=== PATIENT | female | born 1985 | race Two or more races ===

== ENCOUNTER 2018-03-03 10:18 | Emergency (ER) | payer OTHER ==
[2018-03-03 10:32] VITALS: BP 154/70; PULSE 72; TEMP 98.7; BMI 26.4
[2018-03-03] MEDS ORDERED: AMOXICILLIN 500 MG CAPSULE (FP) PO ONE (10:57)
[2018-03-03] MEDS ORDERED: IBUPROFEN 400 MG TABLET (FP) PO ONE ×2 (10:58→11:04)
--- NOTE | 2018-03-03 11:03 | PDOC ---
History of Present Illness - General Chief Complaint: Abscess Boil Stated Complaint: ABSCESS BOIL Time Seen by Provider: 03/03/18 10:29 History Source: Patient Exam Limitations: No Limitations - History of Present Illness Initial Comments: 03/03/18 10:58 Patient came for evaluation of left cheek swelling/facial swelling that started yesterday. States is progressively worsened. Eyes fever, denies any drainage from area, has no URI symptoms or cellulitis. States having multiple areas of dental injury and decay. Has no dentist. 03/03/18 17:00 03/03/18 17:02 Timing/Duration: reports: getting worse Severity: Yes: mild Location: reports: face Respiratory Risk Factors: reports: no cause identified Associated Symptoms: reports: denies symptoms Past History - Travel Traveled outside of the country in the last 30 days: No Close contact w/someone who was outside of country & ill: No - Past Medical History Allergies/Adverse Reactions: Allergies Allergy/AdvReac Type Severity Reaction Status Date / Time No Known Allergies Allergy Verified 03/03/18 10:29 Home Medications: Ambulatory Orders Naproxen [Naprosyn] 500 mg PO BID PRN #20 tablet 10/05/15 Nitrofurantoin Monohyd/M-Cryst [Macrobid -] 100 mg PO BID #14 capsule 10/05/15 Ondansetron [Zofran *Odt*] 8 mg SL TID PRN #14 od.tablet 10/05/15 Oxycodone HCl/Acetaminophen [Percocet 5-325 mg Tablet] 1 - 2 combo PO Q4H PRN # 20 tablet MDD 12 10/05/15 Tamsulosin HCl [Flomax] 0.4 mg PO DAILY #7 capsule 10/05/15 Amoxicillin - [Amoxicillin 500mg Capsule -] 500 mg PO TID #21 capsule 03/03/18 Asthma: Yes Cancer: No Cardiac Disorders: No COPD: No Diabetes: No HTN: No Seizures: No Thyroid Disease: No - Surgical History Cholecystectomy: Yes - Immunization History Immunization Up to Date: Yes - Suicide/Smoking/Psychosocial Hx Smoking History: Never smoked Number of Cigarettes Smoked Daily: 8 Information on smoking cessation initiated: No 'Breaking Loose' booklet given: 10/05/15 Hx Alcohol Use: No Drug/Substance Use Hx: No Substance Use Type: None Hx Substance Use Treatment: No Review of Systems - Review of Systems Able to Perform ROS?: Yes Is the patient limited Slovenian proficient: Yes Constitutional: Yes: Symptoms Reported, See HPI HEENTM: Yes: See HPI, Nose Congestion, Throat Swelling, Dental Problems, Mouth Swelling. No: Symptoms Reported Respiratory: Yes: See HPI. No: Symptoms reported Integumentary: Yes: See HPI. No: Symptoms Reported Neurological: Yes: Symptoms reported All Other Systems: Reviewed and Negative *Physical Exam - Vital Signs Last Vital Signs Temp Pulse Resp BP Pulse Ox 98.7 F 72 16 154/70 100 03/03/18 10:29 03/03/18 10:29 03/03/18 10:29 03/03/18 10:29 03/03/18 10:29 - Physical Exam General Appearance: Yes: Nourished, Appropriately Dressed, Apparent Distress, Mild Distress HEENT: positive: CORA, TMs Normal, Pharynx Normal, Rhinorrhea, Other (multiple areas of dental injury NDKA area of swelling to left upper gingival surface and deep cheek. Has no pointing or fluctuant mass noted. Has no palate abscess or fluctuance.). negative: Nasal Congestion Neck: positive: Tender, Supple Respiratory/Chest: positive: Lungs Clear. 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, Fully Oriented, Alert, Normal Mood/ Affect, Normal Response, Motor Strength 5/5 *DC/Admit/Observation/Transfer Diagnosis at time of Disposition: Abscess, dental - Discharge Dispostion Disposition: HOME Condition at time of disposition: Stable Decision to Admit order: No - Prescriptions Prescriptions: Amoxicillin - [Amoxicillin 500mg Capsule -] 500 mg PO TID #21 capsule - Referrals Referrals: Maurice Wilder [Primary Care Provider] - - Patient Instructions Printed Discharge Instructions: DI for Tooth Abscess Additional Instructions: Rest, drink lots of fluids: Teas, water, soups Saltwater gargles/ keep mouth clean and rinse after each meal May use wet teabag for pain relief to area Avoid hard chewing foods, stick to ice cream, Jell-O, yogurt etc. Tylenol or Motrin for fever and pain Complete all medication as prescribed Seek dental appointment as soon as possible for evaluation of dental injury/pain Followup with private physician in one to 2 days as needed Return to emergency department for worsened symptoms, fevers, swelling to face or worsened pain - Post Discharge Activity Forms/Work/School Notes: Back to Work
[2018-03-03] MEDS ORDERED: AMOXICILLIN 250 MG CAPSULE ONE (11:04)
== END 2018-03-03 11:19 | disposition home or self-care (01) ==
LOC: JERFT 10:18
DX: K04.7 Periapical abscess without sinus (principal)
CPT/HCPCS: 99281-25

== ENCOUNTER 2019-05-08 18:44 | Emergency (ER) | payer OTHER ==
--- NOTE | 2019-05-08 19:14 | PDOC ---
Rapid Medical Evaluation Time Seen by Provider: 05/08/19 19:12 Medical Evaluation: Allergies Allergy/AdvReac Type Severity Reaction Status Date / Time No Known Allergies Allergy Verified 03/03/18 10:29 05/08/19 19:12 PT presents for evaluation of chest pain and sweating in the hands approximately 45 minutes ago. She states she has panic attacks in the past. Exam: lungs CTAB, RRR, S1 S2 (-) m/r/g Orders: EKG, Trop Pt to proceed to the ER for further evaluation Discharge Disposition - Diagnosis Chest pain - Referrals - Patient Instructions - Post Discharge Activity
[2019-05-08 19:17] VITALS: TEMP 98.6; BMI 31.2
[2019-05-08 21:48] LABS: BASO % 0.4 % (0-2.0); EOS % 0.5 % (0-4.5); HEMATOCRIT 42.5 % (32.4-45.2); HEMOGLOBIN 14.4 GM/dL (10.7-15.3); LYMPH % 19.9 % (8-40); MCH 30.6 pg (25.7-33.7); MEAN PLT VOLUME 8.5 fl (7.5-11.1); MONO % 6.4 % (3.8-10.2); NEUT % 72.8 % (42.8-82.8); PLATELET COUNT 296 K/MM3 (134-434); RBC 4.72 M/mm3 (3.60-5.2)
[2019-05-08 22:17] LABS: ALBUMIN 4.2 g/dl (3.4-5.0); ALK PHOS 65 U/L (45-117); ANION GAP 8 MMOL/L (8-16); BILIRUBIN,TOTAL 1.2 mg/dL (0.2-1); BLOOD UREA NITROGEN 11.4 mg/dL (7-18); CALCIUM 9.3 mg/dL (8.5-10.1); CHLORIDE 106 mmol/L (98-107); CO2 26 mmol/L (21-32); CREATININE 0.8 mg/dL (0.55-1.3); GLUCOSE,RANDOM 97 mg/dL (74-106); POTASSIUM 4.1 mmol/L (3.5-5.1); SGOT/AST 14 U/L (15-37); SGPT/ALT 26 U/L (13-61); SODIUM 140 mmol/L (136-145); TOT PROT 7.4 g/dl (6.4-8.2)
--- NOTE | 2019-05-08 22:36 | PDOC ---
Attending Attestation - Resident Resident Name: Rafael Vasquez - ED Attending Attestation I have performed the following: I have examined & evaluated the patient, The case was reviewed & discussed with the resident, I agree w/resident's findings & plan, Exceptions are as noted - HPI HPI: 05/08/19 22:38 Ms. Robb Fonseca is a 34-year-old female who presents emergency department with a complaint of chest pain. Patient states she was in her usual state of health, began to have a panic attack (which she has had in the past). Typically she is able to breathe through these and control her symptoms. However today she could not control her panic symptoms and began to have left- sided chest pain. Patient states she had to call her sister for assistance because she thought she was going to pass out. Chest pain is associated with shortness of breath. She does have chest pain with deep breath. No chest pain with palpation. Chest pain is current. No fevers, chills, cough. - Physicial Exam PE: 05/08/19 22:39 GENERAL: The patient is in no acute distress, appears comfortable, is not rapidly breathing, does not appear anxious. ENT: Ears normal, nares patent, oropharynx clear without exudates. Moist mucous membranes. NECK: Normal range of motion, supple LUNGS: Breath sounds equal, clear to auscultation bilaterally. No wheezes, and no crackles. HEART:Regular rate and rhythm, normal S1 and S2 without murmur, rub or gallop. No chest wall tenderness to palpation ABDOMEN: Soft, nontender, normoactive bowel sounds. EXTREMITIES: Normal range of motion, no edema. NEUROLOGICAL: Cranial nerves II through XII grossly intact. Normal speech. No focal neurological deficits. SKIN: Warm, Dry, normal turgor, no rashes or lesions noted. - Medical Decision Making 05/08/19 22:39 34-year-old female presenting to the emergency department with a complaint of pleuritic left-sided chest pain. Patient symptoms began in the setting of a panic attack however given pleuritic symptoms and tobacco use will evaluate for: ACS, PE Although I believe neither of these are likely, will send labs, EKG Most likely costochondritis, musculoskeletal pain in the setting of panic attack 05/08/19 22:41 Laboratory Tests 05/08/19 05/08/19 21:21 21:21 WBC 10.0 Hgb 14.4 Hct 42.5 Plt Count 296 BUN 11.4 Creatinine 0.8 05/08/19 23:32 Laboratory Tests 05/08/19 05/08/19 21:21 23:00 D-Dimer 245 Creatine Kinase 75 Troponin I < 0.02 EKG: Twelve-lead EKG was performed and reviewed by me. There is normal sinus rhythm with a normal rate. The axis is normal. The intervals are normal. There are no ST or T wave abnormalities. Impression: Normal twelve-lead EKG CXR: No pneumothorax, no effusion, no consolidation We will reassess We will discharge home 05/09/19 00:29
--- NOTE | 2019-05-09 00:23 | PDOC ---
History of Present Illness - General Chief Complaint: Chest Pain Stated Complaint: CHEST PAIN Time Seen by Provider: 05/08/19 19:12 History Source: Patient Exam Limitations: No Limitations - History of Present Illness Initial Comments: 05/09/19 00:32 34 yo female pmh Panic attacks presents to the ED with chest pain. Pt states the pain is left sided, stabbing, non radiating and non exertional, worse with taking deep breaths and it started around 5 pm while resting at home. Pt has no sig Cardiac hx, denies SOB, current CP, abdominal pain, back pain, changes in bowel or bladder habits. Pt states she has been more stressed out recently and usually stress aggravates her panic attacks. Past History - Past Medical History Allergies/Adverse Reactions: Allergies Allergy/AdvReac Type Severity Reaction Status Date / Time No Known Allergies Allergy Verified 03/03/18 10:29 Home Medications: Ambulatory Orders Naproxen [Naprosyn] 500 mg PO BID PRN #20 tablet 10/05/15 Nitrofurantoin Monohyd/M-Cryst [Macrobid -] 100 mg PO BID #14 capsule 10/05/15 Ondansetron [Zofran *Odt*] 8 mg SL TID PRN #14 od.tablet 10/05/15 Oxycodone HCl/Acetaminophen [Percocet 5-325 mg Tablet] 1 - 2 combo PO Q4H PRN # 20 tablet MDD 12 10/05/15 Tamsulosin HCl [Flomax] 0.4 mg PO DAILY #7 capsule 10/05/15 Amoxicillin - [Amoxicillin 500mg Capsule -] 500 mg PO TID #21 capsule 03/03/18 Asthma: Yes Cancer: No Cardiac Disorders: No COPD: No Diabetes: No HTN: No Seizures: No Thyroid Disease: No - Surgical History Cholecystectomy: Yes - Immunization History Immunization Up to Date: Yes - Psycho Social/Smoking Cessation Hx Smoking History: Current some day smoker Have you smoked in the past 12 months: No Number of Cigarettes Smoked Daily: 8 Information on smoking cessation initiated: No 'Breaking Loose' booklet given: 10/05/15 Hx Alcohol Use: Yes Drug/Substance Use Hx: No Substance Use Type: None Hx Substance Use Treatment: No Review of Systems - Review of Systems Constitutional: No: Chills, Fever Respiratory: No: Shortness of Breath Cardiac (ROS): No: Chest Pain (resolved), Edema ABD/GI: No: Constipated, Diarrhea, Nausea, Vomiting : No: Burning, Dysuria, Frequency, Flank Pain Musculoskeletal: No: Back Pain Neurological: No: Headache *Physical Exam - Vital Signs Last Vital Signs Temp Pulse Resp BP Pulse Ox 98.6 F 94 H 20 146/86 98 05/08/19 19:12 05/08/19 19:12 05/08/19 19:12 05/08/19 19:12 05/08/19 19:12 - Physical Exam General Appearance: Yes: Nourished, Appropriately Dressed. No: Apparent Distress HEENT: positive: EOMI Neck: positive: Supple. negative: Carotid bruit Respiratory/Chest: positive: Lungs Clear, Normal Breath Sounds. negative: Respiratory Distress, Accessory Muscle Use, Crackles, Rales, Rhonchi, Stridor, Wheezing Cardiovascular: positive: Regular Rhythm, Regular Rate, S1, S2. negative: Edema , JVD, Murmur Vascular Pulses: Dorsalis-Pedis (R): 4+, Doralis-Pedis (L): 4+ Gastrointestinal/Abdominal: positive: Flat, Soft. negative: Distended, Guarding , Rebound, Tenderness Musculoskeletal: negative: CVA Tenderness Extremity: positive: Normal Capillary Refill, Normal Inspection Integumentary: positive: Normal Color, Dry, Warm Neurologic: positive: Fully Oriented, Alert, Normal Mood/Affect Heart Score/ECG Review - History History: Slightly suspicious - Electrocardiogram EKG: Normal - Age Age: </= 45 - Risk Factors Risk Factors Heart Score: Yes Smoking History Based on the list above the patient has:: 1-2 risk factors - Troponin Troponin: </= normal limit - Score Heart Score - Total: 1 ED Treatment Course - LABORATORY CBC & Chemistry Diagram: 05/08/19 21:21 05/08/19 21:21 - ADDITIONAL ORDERS Additional order review: Laboratory Results 05/08/19 05/08/19 23:00 21:21 D-Dimer 245 Sodium 140 Potassium 4.1 Chloride 106 Carbon Dioxide 26 Anion Gap 8 BUN 11.4 Creatinine 0.8 Est GFR (CKD-EPI)AfAm 111.48 Est GFR (CKD-EPI)NonAf 96.19 Random Glucose 97 Calcium 9.3 Total Bilirubin 1.2 H AST 14 L ALT 26 Alkaline Phosphatase 65 Creatine Kinase 75 Troponin I < 0.02 Total Protein 7.4 Albumin 4.2 05/08/19 21:21 RBC 4.72 MCV 90.0 MCHC 34.0 RDW 14.0 MPV 8.5 Neutrophils % 72.8 Lymphocytes % 19.9 D Monocytes % 6.4 Eosinophils % 0.5 Basophils % 0.4 - RADIOLOGY Radiology Studies Ordered: Category Date Time Status CHEST PA & LAT [RAD] Stat Radiology 05/08/19 21:05 Taken Medical Decision Making - Medical Decision Making 05/09/19 00:54 34 yo female pmh Panic attacks presents to the ED with chest pain. Pt states the pain is left sided, stabbing, non radiating and non exertional, worse with taking deep breaths and it started around 5 pm while resting at home. Pt has no sig Cardiac hx, denies SOB, current CP, abdominal pain, back pain, changes in bowel or bladder habits. Pt states she has been more stressed out recently and usually stress aggravates her panic attacks. R/O DC or PE Labs normal including d dimer and trops EKG NSR without signs of ischemia CXR normal Pt safe for DC home with PCP and cardiology f/u Discharge - Discharge Information Problems reviewed: Yes Clinical Impression/Diagnosis: Chest pain Condition: Stable - Admission No - Follow up/Referral Referrals: Maurice Wilder [Primary Care Provider] - Taurus Birmingham MD [Non Staff, Medical] - - Patient Discharge Instructions Patient Printed Discharge Instructions: DI for Atypical Chest Pain, DI for Panic Disorder, DI for Chest Pain Additional Instructions: Please see your Primary Doctor within the next 48 hours and make an appointment to see the Girls Swimming Coach referred to you. Return to the ER for new or concerning symptoms including but not limited to: chest pain, difficulty breathing, high fevers. Thank you - Post Discharge Activity
[2019-05-09 01:03] VITALS: BP 144/80; PULSE 89
--- NOTE | 2019-05-09 09:07 | EKG ---
Test Reason : Blood Pressure : / mmHG Vent. Rate : 080 BPM Atrial Rate : 080 BPM P-R Int : 158 ms QRS Dur : 082 ms QT Int : 400 ms P-R-T Axes : 077 078 066 degrees QTc Int : 461 ms NORMAL SINUS RHYTHM NORMAL ECG NO PREVIOUS ECGS AVAILABLE Confirmed by Alex Maradiaga MD ([id number]) on 05/09/2019 9:06:49 AM Referred By: Confirmed By:Alex Maradiaga MD
== END 2019-05-09 01:05 | disposition home or self-care (01) ==
LOC: JER 18:44
DX: R07.9 Chest pain, unspecified (principal); F41.0 Panic disorder [episodic paroxysmal anxiety]; J45.909 Unspecified asthma, uncomplicated; Z90.49 Acquired absence of other specified parts of digestive tract
CPT/HCPCS: 36415; 71046-TC-FY; 80053; 82550; 84484; 85025; 85379; 93005; 93010; 99284-25

== ENCOUNTER 2020-03-06 12:40 | Emergency (ER) | payer OTHER ==
--- NOTE | 2020-03-06 12:45 | PDOC ---
Rapid Medical Evaluation Chief Complaint: Pain Time Seen by Provider: 03/06/20 12:44 Medical Evaluation: Allergies Allergy/AdvReac Type Severity Reaction Status Date / Time No Known Allergies Allergy Verified 03/03/18 10:29 03/06/20 12:44 Pt presents for evaluation of breast pain and rash since yesterday Exam: defer to provider Orders: defer to provider Pt to proceed to the ER for further evaluation Discharge Disposition - Diagnosis Breast pain - Referrals - Patient Instructions - Post Discharge Activity
[2020-03-06 12:46] VITALS: BP 126/73; PULSE 86; TEMP 98; BMI 36.1
[2020-03-06] MEDS ORDERED: ASPIRIN 81 MG CHEWABLE TABLETS PO ONE (13:12)
[2020-03-06] MEDS ORDERED: ASPIRIN 81 MG CHEWABLE TABLETS ONE (13:30)
--- OUTSIDE RECORDS SUMMARY | 2020-03-06 13:39 | XMS ---
:1985 Author Organization [facility] Care Team Providers Name Role Phone JAYSON HUDSON Unavailable Unavailable Tammy ROWAN, [id number] Unavailable Unavailabl e Bert Aguilar MD Unavailable Unavailable Edelmira Aguilar MD Unavailable Unavailable Edelmira Aguilar MD Unavailable Unavailable Edelmira Aguilar MD Unavailable Unavailable Edelmira Aguilar MD Unavailable Unavailable Edelmira Aguilar MD Unavailable Unavailable Edelmira Aguilar MD Unavailable Unavailable Re-disclosure Warning The records that you are about to access may contain information from federally- assisted alcohol or drug abuse programs. If such information is present, then the following federally mandated warning applies: This information has been disclosed to you from records protected by federal confidentiality rules (42 CFR part 2). The federal rules prohibit you from making any further disclosure of this information unless further disclosure is expressly permitted by the written consent of the person to whom it pertains or as otherwise permitted by 42 CFR part 2. A general authorization for the release of medical or other information is NOT sufficient for this purpose. The Federal rules restrict any use of the information to criminally investigate or prosecute any alcohol or drug abuse patient.The records that you are about to access may contain highly sensitive health information, the redisclosure of which is protected by Article 27-F of the [facility] Public Health law. If you continue you may haveaccess to information: Regarding HIV / AIDS; Provided by facilities licensed or operated by the [facility] Office of Mental Health; or Provided by the [facility] Office for People With Developmental Disabilities. If such information is present, then the following [facility] mandated warning applies: This information has been disclosed to you from confidential records which are protected by state law. State law prohibits you from making any further disclosure of this information without the specific written consent of the person to whom it pertains, or as otherwise permitted by law. Any unauthorized further disclosure in violation of state law may result in a fine or mcfp sentence or both. A general authorization for the release of medical or other information is NOT sufficient authorization for further disclosure. Encounters Encounter Providers Location Date Indications Data Source(s ) Emergency Attender: Bert Hickey 03/27/2019 [facility] 10:54:00 AM EDT Medical C enter MDAdmitter: Bert - 03/27/2019 [facility] 01:48:00 PM EDT Patient discharged. Outpatient Attender: [id number] 02/06/2019 [facility] To, 10:07:00 AM EDT [facility] RAdmitter: [id number] Care [place] rpTammy Paz Emergency Attender: BECCA, 02/04/2019 DENTIST. Azeem TYLERAdmitter: 12:41:00 PM EDT RIGHT JAW [facility] JAW Emergency H 09/16/2018 11:33:[address] [facility] [place] Medications Medication Brand Start Product Dose Route Administrative Pharmacy [facility] Indications Reaction Description Data Name Date Form Instructions Instructions Source(s) Ketorolac ketoro 1 complet Tromethamin lac 10 [facility] s e 10 MG mg Medical Oral Tablet Tablet Center ketorolac , 10 mg Ordere Tablet, d By: Ordered By: Enrijennifer Domenicaureliano Alberto Alberto, MDDirection MDDire s: 1 tablet ctions oral every : 1 six hours tablet PRN pain oral every six hours PRN pain Mupirocin mupiro 1 complet [facility] 0.02 MG/MG julio cesar 2 [facility] Topical % Medical Ointment Ointme Center mupirocin 2 nt, % Ointment, Ordere Ordered By: d By: Giancarlo Barnard, PADirection PADire s: 1 ctions application : 1 topical applic three times ation a day topica sparingly l into the three right times nostril a day sparin gly into the right nostri l Sulfamethox sulfam 1 complet Tom nt azole 800 ethoxa ed Bahman MG / zole-t Medical Trimethopri rimeth Center m 160 MG oprim Oral Tablet 800 sulfamethox mg-160 azole-trime mg thoprim 800 Tablet mg-160 mg , Tablet, Ordere Ordered By: d By: Giancarlo Barnard PADirection PADire s: 1 tablet ctions oral every : 1 twelve tablet hours oral every twelve hours Insurance Providers Payer name Policy type Policy ID Covered Covered republican's Policy P neftali / Coverage republican ID relationship to Pike Inf ormation type pike CAROLYN [id number] SP [id number] 300 HEALTH NON CAP CAROLYN W [id number] 01 [id number] Problems, Conditions, and Diagnoses Code Display Name Description Problem Type Effective Data Sour ce(s) Dates F17.210 Nicotine NICOTINE Diagnosis 03/27/2019 [facility] dependence, DEPENDENCE, 10:54:[address] [facility] [address] cigarettes, CIGARETTES, EDT uncomplicated UNCOMPLICATED J45.909 Unspecified UNSPECIFIED Diagnosis 03/27/2019 [place] asthma, ASTHMA, 10:54:00 AM Medical Cent[facility] r uncomplicated UNCOMPLICATED EDT L03.211 Cellulitis of face CELLULITIS OF FACE Diagnosis 9 [facility] 10:54[facility] J34.89 Other specified OTHER SPECIFIED Diagnosis 03/27/2019 [facility] disorders of nose DISORDERS OF NOSE 10:54:00 AM Medical Center and nasal sinuses AND NASAL SINUSES EDT K02.9 Dental caries, DENTAL CARIES, Diagnosis 02/06/2019 [place] unspecified UNSPECIFIED 10:07:00 AM [facility] EDT Care [facility] Z13.84 Encounter for ENCOUNTER FOR Diagnosis 02/06/2019 [facility] screening for SCREENING FOR 10:07:00 AM [facility] dental disorders DENTAL DISORDERS EDT [facility] J45.909 Unspecified UNSPECIFIED Diagnosis 02/04/2019 [place] asthma, ASTHMA, 12:41:00 PM [facility] uncomplicated UNCOMPLICATED EDT Care [facility] K04.7 Periapical abscess PERIAPICAL ABSCESS Diagnosis 9 [place] without sinus WITHOUT SINUS 12:41:00 PM [facility] EDT [facility] Z72.0 Tobacco use TOBACCO USE Diagnosis 09/16/2018 [facility] 11:33:00 AM Medical [facility] EDT R07.89 Other chest pain OTHER CHEST PAIN Diagnosis 09/16/2018 [facility] 11:33:00 AM Medical Trace[facility] r EDT R07.9 Chest pain, CHEST PAIN, Diagnosis 09/16/2018 [facility] unspecified UNSPECIFIED 11:33:[address] EDT Results ID Date Data Source LIPID 09/16/2018 12:58:[address] [facility] [place] Name Value Range Interpretation Description Data Sup porting Code Source(s) Document(s ) Triglyceride < 150 <content [facility] [Mass/volume] in styleCode="[facility] Serum or Plasma d">Triglycerid [facility] es Center </content>77 MG/DL<content styleCode="Lula lics"> (< 150 MG/DL)</conten t> Cholesterol -<200 <content [facility] [Mass/volume] in styleCode="[facility] Serum or Plasma d">Cholesterol Medical </content>174 Center MG/DL<content styleCode="Lula lics"> (-<200 MG/DL)</conten t> UNK < 100 <content Saint styleCode="José Miguel Bahman d">LDL-[facility] diana Center </content>90 MG/DL<content styleCode="Lula lics"> (< 100 MG/DL)</conten t> UNK > 60 <content [facility] styleCode="José Miguel Bahman d">HDL- Medical Cholesterol Center </content>69 MG/DL<content styleCode="Lula lics"> (> 60 MG/DL)</conten t> ID Date Data Source HematologyRou 09/16/2018 12:58:[address] [facility] [place] Name Value Range Interpretation Description Data Sup porting Code Source(s) Document(s ) Erythrocytes 4.0-5.1 <content [facility] [#/volume] in styleCode="Bold [facility]man Blood by ">Red Blood Medical Automated count Cell Count Center </content>4.18 MCUMM<content styleCode="Ital ics"> (4.0-5.1 MCUMM)</content > Hemoglobin 12.3-16. <content [facility] [Mass/volume] in 0 styleCode="Bold Bahman Blood ">Hemoglobin Medical </content>12.5 Center G/DL<content styleCode="Ital ics"> (12.3-16.0 G/DL)</content> Leukocytes 4.4-11.0 <content [facility] [#/volume] in styleCode="Bold Bahman Blood by ">White Blood Medical Automated count Cell Count Center </content>7.48 KCUMM<content styleCode="Ital ics"> (4.4-11.0 KCUMM)</content > Hematocrit 36.0-46. <content [facility] [Volume 0 styleCode="Bold Bahman Fraction] of ">Hematocrit Medical Blood by </content>37.6 Center Automated count %<content styleCode="Ital ics"> (36.0-46.0 %)</content> Platelets 130-400 <content [facility] [#/volume] in styleCode="Bold Bahman Blood by ">Platelet Medical Automated count Count Center </content>268 KCUMM<content styleCode="Ital ics"> (130-400 KCUMM)</content > Erythrocyte mean 32.0-37. <content [facility] corpuscular 0 styleCode="Bold Bahman hemoglobin ">Mean Corpus. Medical concentration Hgb Center [Mass/volume] by Concentration Automated count (MCHC) </content>33.2 G/DL<content styleCode="Ital ics"> (32.0-37.0 G/DL)</content> Erythrocyte mean 80.0-100 <content [facility] corpuscular .0 styleCode="Bold Bahman volume [Entitic ">Mean Medical volume] by Corpuscular Center Automated count Volume </content>90.0 FL<content styleCode="Ital ics"> (80.0-100.0 FL)</content> Erythrocyte 11.5-14. <content [facility] distribution 5 styleCode="Bold Bahman width [Ratio] by ">Red Cell Medical Automated count Distribution Center Width </content>13.1 %<content styleCode="Ital ics"> (11.5-14.5 %)</content> Erythrocyte mean 26.0-34. <content [facility] corpuscular 0 styleCode="Bold Bahman hemoglobin ">Mean Medical [Entitic mass] Corposcular Center by Automated Hemoglobin count </content>29.9 PG<content styleCode="Ital ics"> (26.0-34.0 PG)</content> Platelet mean 8.0-11.0 <content [facility] volume [Entitic styleCode="Bold Bahman volume] in Blood ">Mean Platelet Medical by Automated Volume Center count </content>10.1 FL<content styleCode="Ital ics"> (8.0-11.0 FL)</content> UNK 0 <content [facility] styleCode="Bold Bahman ">Nucleated Red Medical Blood Cell Center </content>0.0 /100<content styleCode="Ital ics"> (0 /100)</content> UNK 0.0 <content Saint styleCode="Bold Bahman ">Nucleated Red Medical Blood Cell Center Count </content>0.00 KCUMM<content styleCode="Ital ics"> (0.0 KCUMM)</content > Erythrocyte mean 80.0-100 <content [facility] corpuscular .0 styleCode="Bold Bahman volume [Entitic ">Mean Medical volume] by Corpuscular Center Automated count Volume </content>89.4 FL<content styleCode="Ital ics"> (80.0-100.0 FL)</content> Hematocrit 36.0-46. <content [facility] [Volume 0 styleCode="Bold Bahman Fraction] of ">Hematocrit Medical Blood by </content>39.7 Center Automated count %<content styleCode="Ital ics"> (36.0-46.0 %)</content> Hemoglobin 12.3-16. <content [facility] [Mass/volume] in 0 styleCode="Bold Bahman Blood ">Hemoglobin Medical </content>13.4 Center G/DL<content styleCode="Ital ics"> (12.3-16.0 G/DL)</content> Erythrocytes 4.0-5.1 <content [facility] [#/volume] in styleCode="Bold Bahman Blood by ">Red Blood Medical Automated count Cell Count Center </content>4.44 MCUMM<content styleCode="Ital ics"> (4.0-5.1 MCUMM)</content > Leukocytes 4.4-11.0 <content [facility] [#/volume] in styleCode="Bold Bahman Blood by ">White Blood Medical Automated count Cell Count Center </content>5.86 KCUMM<content styleCode="Ital ics"> (4.4-11.0 KCUMM)</content > Platelet mean 8.0-11.0 <content [facility] volume [Entitic styleCode="Bold Bahman volume] in Blood ">Mean Platelet Medical by Automated Volume Center count </content>9.7 FL<content styleCode="Ital ics"> (8.0-11.0 FL)</content> Platelets 130-400 <content [facility] [#/volume] in styleCode="Bold Bahman Blood by ">Platelet Medical Automated count Count Center </content>237 KCUMM<content styleCode="Ital ics"> (130-400 KCUMM)</content > Erythrocyte 11.5-14. <content [facility] distribution 5 styleCode="Bold Bahman width [Ratio] by ">Red Cell Medical Automated count Distribution Center Width </content>13.0 %<content styleCode="Ital ics"> (11.5-14.5 %)</content> Erythrocyte mean 32.0-37. <content [facility] corpuscular 0 styleCode="Bold Bahman hemoglobin ">Mean Corpus. Medical concentration Hgb Center [Mass/volume] by Concentration Automated count (MCHC) </content>33.8 G/DL<content styleCode="Ital ics"> (32.0-37.0 G/DL)</content> Erythrocyte mean 26.0-34. <content [facility] corpuscular 0 styleCode="Bold Bahman hemoglobin ">Mean Medical [Entitic mass] Corposcular Center by Automated Hemoglobin count </content>30.2 PG<content styleCode="Ital ics"> (26.0-34.0 PG)</content> UNK 0.0 <content Saint styleCode="Bold Bahman ">Nucleated Red Medical Blood Cell Center Count </content>0.00 KCUMM<content styleCode="Ital ics"> (0.0 KCUMM)</content > UNK 0 <content Saint styleCode="Bold Bahman ">Nucleated Red Medical Blood Cell Center </content>0.0 /100<content styleCode="Ital ics"> (0 /100)</content> ID Date Data Source GFR(Creatinine) 09/16/2018 12:58:[address] [facility] [place] Name Value Range Interpretation Code Description Data Alondra rce(s) Supporting Document(s ) UNK > 60 <content [facility] styleCode="Bold"> Medical Cent er EGFR </content>122 GFR<content styleCode="Italic s"> (> 60 GFR)</content> UNK > 60 <content [facility] styleCode="Bold"> Medical Cent er EGFR </content>122 GFR<content styleCode="Italic s"> (> 60 GFR)</content> ID Date Data Source Coagulation Rout 09/16/2018 12:58:[address] [facility] [place] Name Value Range Interpretation Description Data Sup porting Code Source(s) Document(s ) UNK < 500 <content [facility] styleCode="Bold" Bahman >D-Dimer Medical </content>212 Center ngFEU<content styleCode="Itali cs"> (< 500 ngFEU)</content> UNK 9.0-13.0 <content [facility] styleCode="Bold" Bahman >Protime Medical </content>11.1 Center SEC<content styleCode="Itali cs"> (9.0-13.0 SEC)</content> aPTT in 25.1-36. <content Saint Platelet poor 5 styleCode="Bold" Bahman plasma by >Partial Medical Coagulation Thromboplastin Center assay Time </content>32.6 SEC<content styleCode="Itali cs"> (25.1-36.5 SEC)</content> INR in 0.80-1.2 <content [facility] Platelet poor 0 styleCode="Bold" Bahman plasma by >INR Medical Coagulation </content>0.98 Center assay #<content styleCode="Itali cs"> (0.80-1.20 #)</content> ID Date Data Source CHMROUTINECCDA 09/16/2018 12:58:[address] [facility] [place] Name Value Range Interpretation Description Data Sup porting Code Source(s) Document(s ) Natriuretic < 125 <content [facility] peptide.B styleCode="José Miguel [facility]man prohormone d">NT Pro BNP Medical N-Terminal </content>35.5 Center [Mass/volume] PG/ML<content in Serum or styleCode="Lula Plasma lics"> (< 125 PG/ML)</conten t> ID Date Data Source CardiacMarkers 09/16/2018 12:58:[address] [facility] [place] Name Value Range Interpretation Description Data Sup porting Code Source(s) Document(s ) Troponin 0-0.034 <content [facility] I.cardiac styleCode="Bold Bahman [Mass/volume ">Troponin I Medical ] in Serum </content>< Center or Plasma 0.012 NG/ML<content styleCode="Ital ics"> (0-0.034 NG/ML)</content > Troponin < 0.034 <content [facility] I.cardiac styleCode="Bold Bahman [Mass/volume ">Troponin I Medical ] in Serum </content>< Center or Plasma 0.012 NG/ML<content styleCode="Ital ics"> (< 0.034 NG/ML)</content > ID Date Data Source BMP 09/16/2018 12:58:[address] [facility] [place] Name Value Range Interpretation Description Data Sup porting Code Source(s) Document(s ) Carbon dioxide, 22-30 <content [facility] total styleCode="Bold"> Bahman [Moles/volume] in Carbon Dioxide Medical Serum or Plasma </content>30 Center MEQ/L<content styleCode="Italic s"> (22-30 MEQ/L)</content> Potassium 3.5-5.3 <content Saint [Moles/volume] in styleCode="Bold"> Suad phs Serum or Plasma Potassium Medical </content>4.5 Center MEQ/L<content styleCode="Italic s"> (3.5-5.3 MEQ/L)</content> Sodium 137-145 <content Saint [Moles/volume] in styleCode="Bold"> Suad phs Serum or Plasma Sodium Medical </content>139 Center MEQ/L<content styleCode="Italic s"> (137-145 MEQ/L)</content> Chloride 98-107 <content [facility] [Moles/volume] in styleCode="Bold"> Suad phs Serum or Plasma Chloride Medical </content>104 Center MEQ/L<content styleCode="Italic s"> (98-107 MEQ/L)</content> Creatinine 0.5-1.3 <content Saint [Mass/volume] in styleCode="Bold"> Silverio hs Serum or Plasma Creatinine Medical </content>0.6 Center MG/DL<content styleCode="Italic s"> (0.5-1.3 MG/DL)</content> UNK 7-17 <content Saint styleCode="Bold"> [facility]man BUN </content>13 Medical MG/DL<content Center styleCode="Italic s"> (7-17 MG/DL)</content> Glucose 74-106 <content Saint [Mass/volume] in styleCode="Bold"> Silverio hs Serum or Plasma Glucose Medical </content>90 Center MG/DL<content styleCode="Italic s"> (74-106 MG/DL)</content> Calcium 8.4-10. <content Saint [Mass/volume] in 2 styleCode="Bold"> Silverio hs Serum or Plasma Calcium Medical </content>9.1 Center MG/DL<content styleCode="Italic s"> (8.4-10.2 MG/DL)</content> Alkaline 38-126 <content [facility] phosphatase styleCode="Bold"> Bahman [Enzymatic Alkaline Medical activity/volume] Phosphatase (ALP) Cente r in Serum or Plasma </content>50 IU/L<content styleCode="Italic s"> (38-126 IU/L)</content> Alanine 7-30 <content [facility] aminotransferase styleCode="Bold"> Silverio hs [Enzymatic Alanine Medical activity/volume] Aminotransferase Center in Serum or Plasma (ALT) </content>20 IU/L<content styleCode="Italic s"> (7-30 IU/L)</content> Aspartate 14-36 <content [facility] aminotransferase styleCode="Bold"> Silverio hs [Enzymatic Aspartate Medical activity/volume] Aminotransferase Center in Serum or Plasma (AST) </content>16 IU/L<content styleCode="Italic s"> (14-36 IU/L)</content> UNK > 60 <content Saint styleCode="Bold"> [facility] EGFR Medical </content>122 Center GFR<content styleCode="Italic s"> (> 60 GFR)</content> Albumin 3.5-5.0 <content Saint [Mass/volume] in styleCode="Bold"> Silverio hs Serum or Plasma Albumin Medical </content>4.0 Center G/DL<content styleCode="Italic s"> (3.5-5.0 G/DL)</content> Bilirubin.total 0.2-1.3 <content Saint [Mass/volume] in styleCode="Bold"> Silverio hs Serum or Plasma Bilirubin Total Medical </content>0.5 Center MG/DL<content styleCode="Italic s"> (0.2-1.3 MG/DL)</content> Sodium 137-145 <content Saint [Moles/volume] in styleCode="Bold"> Suad phs Serum or Plasma Sodium Medical </content>140 Center MEQ/L<content styleCode="Italic s"> (137-145 MEQ/L)</content> Creatinine 0.5-1.3 <content Saint [Mass/volume] in styleCode="Bold"> Silverio hs Serum or Plasma Creatinine Medical </content>0.6 Center MG/DL<content styleCode="Italic s"> (0.5-1.3 MG/DL)</content> UNK 7-17 <content Saint styleCode="Bold"> [facility]man BUN </content>9 Medical MG/DL<content Center styleCode="Italic s"> (7-17 MG/DL)</content> Carbon dioxide, 22-30 <content [facility] total styleCode="Bold"> Bahman [Moles/volume] in Carbon Dioxide Medical Serum or Plasma </content>26 Center MEQ/L<content styleCode="Italic s"> (22-30 MEQ/L)</content> Chloride 98-107 Above high <content Saint [Moles/volume] in normal styleCode="Bold"> Suad [facility] Serum or Plasma Chloride Medical </content>108 Center MEQ/L H<content styleCode="Italic s"> (98-107 MEQ/L)</content> Potassium 3.5-5.3 <content Saint [Moles/volume] in styleCode="Bold"> Suad phs Serum or Plasma Potassium Medical </content>4.5 Center MEQ/L<content styleCode="Italic s"> (3.5-5.3 MEQ/L)</content> UNK > 60 <content Saint styleCode="Bold"> [facility] EGFR Medical </content>122 Center GFR<content styleCode="Italic s"> (> 60 GFR)</content> Calcium 8.4-10. <content Saint [Mass/volume] in 2 styleCode="Bold"> Silverio hs Serum or Plasma Calcium Medical </content>9.1 Center MG/DL<content styleCode="Italic s"> (8.4-10.2 MG/DL)</content> Glucose 74-106 <content Saint [Mass/volume] in styleCode="Bold"> Silverio hs Serum or Plasma Glucose Medical </content>84 Center MG/DL<content styleCode="Italic s"> (74-106 MG/DL)</content> ID Date Data Source Urinalysis 09/16/2018 12:56:[address] [facility] [place] Name Value Range Interpretation Description Data Sup porting Code Source(s) Document(s ) Glucose NEGATIVE <content [facility] [Mass/volume] styleCode="José Miguel Ruggiero in Urine by d">Urine Medical Test strip Glucose Center </content>NEGA TIVE MG/DL<content styleCode="Lula lics"> (NEGATIVE MG/DL)</conten t> UNK CLEAR <content Saint styleCode="José Miguel Ruggiero d">Urine Medical Clarity Center </content>JOEY R <content styleCode="Lula lics"> (CLEAR )</content> Color of Urine YELLOW <content Saint styleCode="José Miguel Bahman d">Color, Medical Urine Center </content>YELL OW <content styleCode="Lula lics"> (YELLOW )</content> UNK NEGATIVE <content Saint styleCode="José Miguel Bahman d">Urine Medical Bilirubin Center </content>NEGA TIVE <content styleCode="Lula lics"> (NEGATIVE )</content> Specific 1.015-1.02 <content Saint gravity of 5 styleCode="José Miguel Bahman Urine by Test d">Urine Medical strip Specific Center [place] </content>1.02 5 NM<content styleCode="Lula lics"> (1.015-1.025 NM)</content> pH of Urine by 4.5-8.0 <content Saint Test strip styleCode="José Miguel Bahman d">Urine pH Medical </content>6.0 Center NM<content styleCode="Lula lics"> (4.5-8.0 NM)</content> Ketones NEGATIVE <content Saint [Mass/volume] styleCode="José Miguel Bahman in Urine by d">Urine Medical Test strip Ketone Center </content>NEGA TIVE MG/DL<content styleCode="Lula lics"> (NEGATIVE MG/DL)</conten t> Hemoglobin NEGATIVE <content Saint [Presence] in styleCode="José Miguel Bahman Urine by Test d">Urine Blood Medical strip </content>NEGA Center TIVE <content styleCode="Lula lics"> (NEGATIVE )</content> Urobilinogen 0.2-1.0 <content Saint [Units/volume] styleCode="José Miguel Bahman in Urine by d">Urine Medical Test strip Urobilinogen Center </content>0.2 MG/DL<content styleCode="Lula lics"> (0.2-1.0 MG/DL)</conten t> Nitrite NEGATIVE <content Saint [Presence] in styleCode="José Miguel Bahman Urine by Test d">Urine Medical strip Nitrite Center </content>NEGA TIVE <content styleCode="Lula lics"> (NEGATIVE )</content> Protein NEGATIVE <content Saint [Mass/volume] styleCode="José Miguel Bahman in Urine by d">Urine Medical Test strip Protein Center </content>NEGA TIVE MG/DL<content styleCode="Lula lics"> (NEGATIVE MG/DL)</conten t> Leukocyte NEGATIVE <content [facility] esterase styleCode="José Miguel Bahman [Presence] in d">Urine Medical Urine by Test Leukocyte Center strip </content>NEGA TIVE <content styleCode="Lula lics"> (NEGATIVE )</content> Glucose NEGATIVE <content Saint [Mass/volume] styleCode="José Miguel Bahman in Urine by d">Urine Medical Test strip Glucose Center </content>NEGA TIVE MG/DL<content styleCode="Lula lics"> (NEGATIVE MG/DL)</conten t> UNK CLEAR <content Saint styleCode="José Miguel Bahman d">Urine Medical Clarity Center </content>JOEY R <content styleCode="Lula lics"> (CLEAR )</content> Color of Urine YELLOW <content Saint styleCode="José Miguel Bahman d">Color, Medical Urine Center </content>YELL OW <content styleCode="Lula lics"> (YELLOW )</content> pH of Urine by 4.5-8.0 <content Saint Test strip styleCode="José Miguel Bahman d">Urine pH Medical </content>6.5 Center <content styleCode="Lula lics"> (4.5-8.0 )</content> Hemoglobin NEGATIVE <content Saint [Presence] in styleCode="José Miguel Bahman Urine by Test d">Urine Blood Medical strip </content>TRAC Center E <content styleCode="Lula lics"> (NEGATIVE )</content> Specific 1.015-1.02 Below low normal <content Saint gravity of 5 styleCode="José Miguel Bahman Urine by Test d">Urine Medical strip Specific Center [place] </content>1.01 0 L<content styleCode="Lula lics"> (1.015-1.025 )</content> Ketones NEGATIVE <content Saint [Mass/volume] styleCode="José Miguel Bahman in Urine by d">Urine Medical Test strip Ketone Center </content>NEGA TIVE MG/DL<content styleCode="Lula lics"> (NEGATIVE MG/DL)</conten t> UNK NEGATIVE <content Saint styleCode="José Miguel Bahman d">Urine Medical Bilirubin Center </content>NEGA TIVE <content styleCode="Lula lics"> (NEGATIVE )</content> Leukocyte NEGATIVE <content Saint esterase styleCode="José Miguel Estradas [Presence] in d">Urine Medical Urine by Test Leukocyte Center strip </content>NEGA TIVE <content styleCode="Lula lics"> (NEGATIVE )</content> Nitrite NEGATIVE <content Saint [Presence] in styleCode="José Miguel Estradas Urine by Test d">Urine Medical strip Nitrite Center </content>NEGA TIVE <content styleCode="Lula lics"> (NEGATIVE )</content> Urobilinogen 0.2-1.0 <content Saint [Units/volume] styleCode="José Miguel Estradas in Urine by d">Urine Medical Test strip Urobilinogen Center </content>0.2 MG/DL<content styleCode="Lula lics"> (0.2-1.0 MG/DL)</conten t> Protein NEGATIVE <content Saint [Mass/volume] styleCode="José Miguel Estradas in Urine by d">Urine Medical Test strip Protein Center </content>NEGA TIVE MG/DL<content styleCode="Lula lics"> (NEGATIVE MG/DL)</conten t> UNK <content Saint styleCode="José Miguel Bahman d">Epithelial Medical Cell Center </content>10 - 20 LPF (Reference Range: not available)<br/ > UNK NEGATIVE <content Saint styleCode="José Miguel Bahman d">Urine Medical Bacteria Center </content>MODE RATE HPF<content styleCode="Lula lics"> (NEGATIVE HPF)</content> UNK 0-3 <content Saint styleCode="José Miguel Bahman d">Urine White Medical Blood Cell Center </content>0-3 HPF<content styleCode="Lula lics"> (0-3 HPF)</content> UNK 0-3 <content Saint styleCode="José Miguel Bahman d">Urine Red Medical Blood Cell Center </content>3-5 HPF<content styleCode="Lula lics"> (0-3 HPF)</content> ID Date Data Source Liver Profile 04/23/2018 09:40:[address] [facility] [place] Name Value Range Interpretation Description Data Sup porting Code Source(s) Document(s ) Alanine 7-30 <content Saint aminotransferase styleCode="Bold"> Silverio hs [Enzymatic Alanine Medical activity/volume] Aminotransferase Center in Serum or Plasma (ALT) </content>20 IU/L<content styleCode="Italic s"> (7-30 IU/L)</content> Aspartate 14-36 <content Saint aminotransferase styleCode="Bold"> Silverio hs [Enzymatic Aspartate Medical activity/volume] Aminotransferase Center in Serum or Plasma (AST) </content>16 IU/L<content styleCode="Italic s"> (14-36 IU/L)</content> Alkaline 38-126 <content Saint phosphatase styleCode="Bold"> Bahman [Enzymatic Alkaline Medical activity/volume] Phosphatase (ALP) Cente r in Serum or Plasma </content>50 IU/L<content styleCode="Italic s"> (38-126 IU/L)</content> Bilirubin.total 0.2-1.3 <content Saint [Mass/volume] in styleCode="Bold"> Silverio hs Serum or Plasma Bilirubin Total Medical </content>0.5 Center MG/DL<content styleCode="Italic s"> (0.2-1.3 MG/DL)</content> Albumin 3.5-5.0 <content Saint [Mass/volume] in styleCode="Bold"> Silverio hs Serum or Plasma Albumin Medical </content>4.0 Center G/DL<content styleCode="Italic s"> (3.5-5.0 G/DL)</content> UNK 0.0-0.3 <content Saint styleCode="Bold"> Bahman Bilirubin, Direct Medical </content>< 0.2 Center MG/DL<content styleCode="Italic s"> (0.0-0.3 MG/DL)</content> Procedure Social History Code Duration Value Status Description Data Source(s ) Smoking 03/27/2019 01:30:00 Daily Smoker completed Daily Smoker [facility] EDT Center Smoking 03/27/2019 12:00:00 Daily Smoker completed Daily Smoker S [facility] EDT Center Smoking 09/16/2018 12:10:00 Daily Smoker completed Daily Smoker S [facility] EDT Center Smoking 09/16/2018 12:10:00 Daily Smoker completed Daily Smoker S [facility] EDT Center Smoking 09/16/2018 12:00:00 Daily Smoker completed Daily Smoker S [facility] EDT Center Smoking 04/23/2018 09:30:00 [id number] completed [facility] EST Center Smoking 04/23/2018 09:23:00 [id number] completed [facility] EST Center Smoking 04/23/2018 08:44:00 [id number] completed [facility] EST Center Vital Signs ID Date Data Source UNK Name Value Range Interpretation Code Description Data Source(s) Body weight 72.144969 kg 72.847030 kg [facility] Body temperature 36.741845 36.358109 [facility] Respiratory rate 17 /min 17 /min [facility] Oxygen saturation 99 % 99 % [facility] in [facility] by Pulse oximetry Heart rate 87 /min 87 /min [facility] [place] Body height 152.136472 152.832213 cm [facility] Diastolic blood 98 mm[Hg] 98 mm[Hg] [facility] pressure [facility] Systolic blood 144 mm[Hg] 144 mm[Hg] [facility] Body mass index 31.2 kg/m2 31.2 kg/m2 [facility] (BMI) [Ratio] Medical [facility] Body temperature 37.898073 37.300264 [facility] Respiratory rate 18 /min 18 /min [facility] Oxygen saturation 97 % 97 % [facility] osephs in [facility] by Pulse oximetry Heart rate 64 /min 64 /min [facility] [place] Diastolic blood 81 mm[Hg] 81 mm[Hg] [facility] Systolic blood 138 mm[Hg] 138 mm[Hg] [facility] Body weight 70.826335 kg 70.206496 kg [facility] Body temperature 37.078118 37.940572 [facility] Respiratory rate 18 /min 18 /min [facility] Oxygen saturation 98 % 98 % [facility] in Arterial blood Medical Center by Pulse oximetry Heart rate 63 /min 63 /min [facility] [place] Body height 149.369374 149.615062 cm [facility] Diastolic blood 73 mm[Hg] 73 mm[Hg] [facility] pressure [facility] Center Systolic blood 139 mm[Hg] 139 mm[Hg] [facility] Body mass index 31.1 kg/m2 31.1 kg/m2 [facility] (BMI) [Ratio] Medical [address] Body temperature 36.863820 36.818328 [facility] Respiratory rate 18 /min 18 /min [facility] Deprecated Oxygen 98 % 98 % [facility] saturation in Medical [facility] Capillary blood by Oximetry Heart rate 74 /min 74 /min [facility] [place] Systolic blood 51 mm[Hg] 51 mm[Hg] [facility] Diastolic blood 117 mm[Hg] 117 mm[Hg] [facility] Body temperature 36.463152 36.993320 [facility] Respiratory rate 17 /min 17 /min [facility] Deprecated Oxygen 98 % 98 % [facility] saturation in Medical [facility] Capillary blood by Oximetry Heart rate 72 /min 72 /min [facility] [place] Systolic blood 80 mm[Hg] 80 mm[Hg] [facility] Diastolic blood 138 mm[Hg] 138 mm[Hg] [facility] Patient Treatment Plan of Care Planned Activity Planned Date Details Description Data Source (s) Sulfamethoxazole 800 MG / Sa [facility] Trimethoprim [address] Tablet Mupirocin 0.02 MG/MG Topical [facility] Ointment Center Ketorolac Tromethamine 10 MG [facility] Oral Tablet Center
[2020-03-06 13:54] LABS: BASO % 0.5 % (0-2.0); EOS % 0.4 % (0-4.5); HEMATOCRIT 41.8 % (32.4-45.2); HEMOGLOBIN 14.2 GM/dL (10.7-15.3); MCH 29.9 pg (25.7-33.7); MCHC 33.8 g/dl (32.0-36.0); MEAN CELL VOLUME 88.3 fl (80-96); MEAN PLT VOLUME 8.6 fl (7.5-11.1); MONO % 7.8 % (3.8-10.2); NEUT % 71.3 % (42.8-82.8); PLATELET COUNT 250 K/MM3 (134-434); RBC 4.74 M/mm3 (3.60-5.2); RDW 13.4 % (11.6-15.6); WHITE BLOOD COUNT 6.4 K/mm3 (4.0-10.0)
[2020-03-06 14:03] LABS: INR 0.96 (0.83-1.09); PROTHROMBIN TIME (PATIENT) 11.3 SEC (9.7-13.0)
[2020-03-06 14:05] LABS: ACTIVATED PTT 31.3 SECONDS (25.2-36.5)
[2020-03-06 14:23] LABS: ALBUMIN 3.9 g/dl (3.4-5.0); ALK PHOS 69 U/L (45-117); ANION GAP 7 MMOL/L (8-16); BILIRUBIN,TOTAL 1.4 mg/dL (0.2-1); BLOOD UREA NITROGEN 12.8 mg/dL (7-18); CALCIUM 8.8 mg/dL (8.5-10.1); CHLORIDE 111 mmol/L (98-107); CO2 23 mmol/L (21-32); CREATININE 0.6 mg/dL (0.55-1.3); GLUCOSE,RANDOM 95 mg/dL (74-106); MAGNESIUM 2.5 mg/dL (1.8-2.4); POTASSIUM 3.9 mmol/L (3.5-5.1); SGOT/AST 12 U/L (15-37); SGPT/ALT 22 U/L (13-61); SODIUM 141 mmol/L (136-145); TOT PROT 7.2 g/dl (6.4-8.2)
[2020-03-06] MEDS ORDERED: diazePAM 2 MG TABLET ONE ×2 (14:48→15:24)
[2020-03-06] MEDS: diazePAM 2 MG TABLET PO ONE ×2 (14:49→15:00)
--- NOTE | 2020-03-06 14:50 | EKG ---
Test Reason : Blood Pressure : / mmHG Vent. Rate : 065 BPM Atrial Rate : 065 BPM P-R Int : 150 ms QRS Dur : 084 ms QT Int : 404 ms P-R-T Axes : 044 067 045 degrees QTc Int : 420 ms POOR DATA QUALITY, INTERPRETATION MAY BE ADVERSELY AFFECTED NORMAL SINUS RHYTHM WITH SINUS ARRHYTHMIA NORMAL ECG WHEN COMPARED WITH ECG OF 08-MAY-2019 19:20, NO SIGNIFICANT CHANGE WAS FOUND Confirmed by Alex Maradiaga MD ([id number]) on 03/06/2020 2:50:08 PM Referred By: Confirmed By:Alex Maradiaga MD
--- NOTE | 2020-03-06 15:12 | PDOC ---
History of Present Illness - General Chief Complaint: Pain Stated Complaint: breast pain Time Seen by Provider: 03/06/20 12:44 - History of Present Illness Initial Comments: 03/06/20 15:08 34-year-old female without comorbidities presents for evaluation of chest pain and shortness of breath x2 days no systemic symptoms no cough Past History - Medical History Allergies/Adverse Reactions: Allergies Allergy/AdvReac Type Severity Reaction Status Date / Time No Known Allergies Allergy Verified 03/06/20 12:46 Home Medications: Ambulatory Orders Naproxen [Naprosyn] 500 mg PO BID PRN #20 tablet 10/05/15 Nitrofurantoin Monohyd/M-Cryst [Macrobid -] 100 mg PO BID #14 capsule 10/05/15 Ondansetron [Zofran *Odt*] 8 mg SL TID PRN #14 od.tablet 10/05/15 Oxycodone HCl/Acetaminophen [Percocet 5-325 mg Tablet] 1 - 2 combo PO Q4H PRN #20 tablet MDD 12 10/05/15 Tamsulosin HCl [Flomax] 0.4 mg PO DAILY #7 capsule 10/05/15 Amoxicillin - [Amoxicillin 500mg Capsule -] 500 mg PO TID #21 capsule 03/03/18 Clobetasol Propionate [Temovate] 30 gm TP BID #1 oint...g. 03/06/20 Clobetasol Propionate [Temovate] 30 gm TP BID #1 oint...g. 03/06/20 Asthma: Yes Cancer: No Cardiac Disorders: No COPD: No Diabetes: No HTN: No Seizures: No Thyroid Disease: No - Surgical History Cholecystectomy: Yes - Reproductive History Is Patient Now?: No - Immunization History Immunization Up to Date: Yes - Psycho-Social/Smoking History Smoking History: Current every day smoker Have you smoked in the past 12 months: No Number of Cigarettes Smoked Daily: 10 Information on smoking cessation initiated: Yes 'Breaking Loose' booklet given: 10/05/15 - Substance Abuse Hx (Audit-C & DAST Scrn) How often the patient has a drink containing alcohol: Never Score: In Men: 4 or > Positive; In Women: 3 or > Positive: 0 Screen Result (Pos requires Nsg. Audit-10AR): Negative In the last yr the pt used illegal drug/Rx for NonMed reason: No Score: Yes response is considered Positive: 0 Screen Result (Positive result requires Nsg. DAST-10): Negative Review of Systems - Review of Systems Constitutional: No: Fever Respiratory: Yes: Shortness of Breath. No: Cough Cardiac (ROS): Yes: Chest Pain *Physical Exam - Vital Signs Last Vital Signs Temp Pulse Resp BP Pulse Ox 98 F 86 19 126/73 99 03/06/20 12:44 03/06/20 12:44 03/06/20 12:44 03/06/20 12:44 03/06/20 12:44 - Physical Exam 03/06/20 15:09 GENERAL: The patient is awake, alert, and fully oriented, in no acute distress. HEAD: Normal with no signs of trauma. EYES: sclera anicteric, conjunctiva clear. ENT: Ears normal tympanic membranes normal oropharynx clear uvula midline NECK: Normal range of motion LUNGS: Breath sounds equal, clear to auscultation bilaterally. No wheezes, and no crackles. HEART: S1 and S2 without murmur, rub or gallop. ABDOMEN: Soft, nontender, normoactive bowel sounds. No guarding, no rebound. No masses. EXTREMITIES: Normal range of motion, no edema. No clubbing or cyanosis. No cords, erythema, or tenderness. NEUROLOGICAL: Cranial nerves II through XII grossly intact. PSYCH: Normal mood, normal affect. SKIN: Warm, Dry, normal turgor, There is a superficial plaque-like rash on the superior aspects of both breast. Mild superficial excoriations without indication of secondary infection. This examination was done with female nurse in the room the entire time.. 03/06/20 15:09 ED Treatment Course - LABORATORY CBC & Chemistry Diagram: 03/06/20 13:30 03/06/20 13:30 - ADDITIONAL ORDERS Additional order review: Laboratory Results 03/06/20 03/06/20 03/06/20 13:30 13:30 13:30 PT with INR INR PTT (Actin FS) D-Dimer 295 Sodium 141 Potassium 3.9 Chloride 111 H Carbon Dioxide 23 Anion Gap 7 L BUN 12.8 Creatinine 0.6 Est GFR (CKD-EPI)AfAm 137.83 Est GFR (CKD-EPI)NonAf 118.92 Random Glucose 95 Calcium 8.8 Magnesium 2.5 H Total Bilirubin 1.4 H AST 12 L ALT 22 Alkaline Phosphatase 69 Creatine Kinase 59 Troponin I < 0.02 Total Protein 7.2 Albumin 3.9 Serum , Qual Negative 03/06/20 13:30 PT with INR 11.30 INR 0.96 PTT (Actin FS) 31.3 D-Dimer Sodium Potassium Chloride Carbon Dioxide Anion Gap BUN Creatinine Est GFR (CKD-EPI)AfAm Est GFR (CKD-EPI)NonAf Random Glucose Calcium Magnesium Total Bilirubin AST ALT Alkaline Phosphatase Creatine Kinase Troponin I Total Protein Albumin Serum , Qual 03/06/20 13:30 RBC 4.74 MCV 88.3 MCHC 33.8 RDW 13.4 MPV 8.6 Neutrophils % 71.3 Lymphocytes % 20.0 Monocytes % 7.8 Eosinophils % 0.4 Basophils % 0.5 - RADIOLOGY Radiology Studies Ordered: Category Date Time Status CHEST PA & LAT [RAD] Stat Radiology 03/06/20 13:12 Completed - Medications Given in the ED: ED Medications Discontinued Medications Generic Name Dose Route Start Last Admin Trade Name Freq PRN Reason Stop Dose Admin Aspirin 162 mg 03/06/20 13:12 03/06/20 13:31 Asa - PO 03/06/20 13:13 162 mg ONCE ONE Administration Diazepam 2 mg 03/06/20 14:47 03/06/20 15:00 Valium - PO 03/06/20 14:48 Not Given ONCE ONE Medical Decision Making - Medical Decision Making 03/06/20 15:09 Benign examination. Most likely anxiety. Patient was given Valium in the emergency room but refused a dose. She states she is being only adult at home. I support her on this decision. Follow-up with her primary care physician in 1 to 2 days for further evaluation and treatment options. Discharge - Discharge Information Problems reviewed: Yes Clinical Impression/Diagnosis: Breast pain, Eczema, Anxiety Condition: Stable Disposition: HOME - Admission No - Follow up/Referral Referrals: Maurice Wilder [Primary Care Provider] - - Patient Discharge Instructions Additional Instructions: Please follow-up with your primary care physician without fail in 1 to 2 days for further evaluation and treatment options of your anxiety and eczema. Please use a steroid cream as directed twice a day to the affected area. Return to the emergency room at any time for further evaluation and treatment options. - Post Discharge Activity
[2020-03-06] MEDS ORDERED: diazePAM 5 MG TABLET PO ONE (15:15)
[2020-03-06] MEDS ORDERED: diazePAM 2 MG TABLET PO ONE (15:22)
== END 2020-03-06 15:27 | disposition home or self-care (01) ==
LOC: JERFT 12:40
DX: N64.4 Mastodynia (principal); L30.9 Dermatitis, unspecified; F41.9 Anxiety disorder, unspecified
CPT/HCPCS: 36415; 71046-TC-FY; 80053; 82550; 83735; 84484; 84703; 85025; 85379; 85610; 85730; 93005; 93010; 99285-25

== ENCOUNTER 2020-12-06 19:02 | Emergency (ER) | payer OTHER ==
[2020-12-06 19:09] VITALS: BP 153/99; PULSE 95; TEMP 98.2; BMI 34.7
[2020-12-06] MEDS ORDERED: LIDOCAINE 5% TOPICAL PATCH TP ONE (19:32)
[2020-12-06] MEDS ORDERED: LIDOCAINE 5% TOPICAL PATCH ONE (20:06)
[2020-12-06] MEDS ORDERED: LIDOCAINE PATCH REMOVAL MC SCH (22:00)
== END 2020-12-06 20:56 | disposition home or self-care (01) ==
LOC: JERFT 19:02
DX: M62.838 Other muscle spasm (principal); S46.812A Strain of other muscles, fascia and tendons at shoulder and upper arm level, left arm, initial encounter
CPT/HCPCS: 99283-25

== ENCOUNTER 2021-10-06 04:23 | Day surgery (SDC) | payer OTHER ==
[2021-10-02 10:35] VITALS: BMI 33.2
[2021-10-06] MEDS ORDERED: ACETAMINOPHEN 325 MG TABLET (FP) PO PRN (06:41)
[2021-10-06] MEDS ORDERED: IBUPROFEN 400 MG TABLET (FP) PO PRN (06:41)
[2021-10-06] MEDS ORDERED: LIDOCAINE HCL 2% 100 MG/5 ML DISP.SYRIN ONE (09:11)
[2021-10-06] MEDS ORDERED: KETOROLAC TROMETHAMINE 30 MG/1 ML VIAL ONE (09:11)
[2021-10-06] MEDS ORDERED: DEXAMETHASONE SOD PHOSPHATE 4 MG/1 ML VIAL ONE (09:11)
[2021-10-06] MEDS ORDERED: DESFLURANE GAS 240 ML BOTTLE IH ONE (09:11)
[2021-10-06] MEDS ORDERED: PROPOFOL 20 ML ONE (09:11)
[2021-10-06] MEDS ORDERED: MIDAZOLAM HCL 2 MG/2 ML SINGLE DOSE VIAL ONE (09:12)
[2021-10-06] MEDS ORDERED: FENTANYL CITRATE/PF 50 MCG/ML VIAL IVPUSH PRN ×2 (10:26)
[2021-10-06] MEDS ORDERED: PROMETHAZINE HCL 25 MG/1 ML VIAL IVPB PRN (10:26)
[2021-10-06] MEDS ORDERED: LACTATED RINGERS SOLUTION 1,000 ML IV SCH (10:30)
[2021-10-06] MEDS ORDERED: oxyCODONE HCL 5 MG TABLET ONE (11:42)
[2021-10-06 13:25] VITALS: BP 159/87; PULSE 62; TEMP 98.3
== END 2021-10-06 13:15 | disposition home or self-care (01) ==
LOC: JASU-SURG 04:23
PROVIDERS: ATTEND Obstetrics & Gynecology
PROC: 0UBC7ZX Excision of Cervix, Via Natural or Artificial Opening, Diagnostic (ICD-10-PCS; principal; 2021-10-06 08:30)
DX: D06.7 Carcinoma in situ of other parts of cervix (principal); R87.810 Cervical high risk human papillomavirus (HPV) DNA test positive
CPT/HCPCS: 81025; 88305-TC; 94760

== ENCOUNTER 2022-11-22 08:25 | Observation (INO) | payer OTHER ==
[2022-11-22 08:34] VITALS: BMI 41.0
[2022-11-22] MEDS ORDERED: ACETAMINOPHEN 1000 MG/100 ML BAG IVPB ONE (09:02)
[2022-11-22] MEDS ORDERED: SODIUM CHLORIDE 0.9% 500 ML INFUS.BAG IV ONE (09:02)
[2022-11-22] MEDS ORDERED: ONDANSETRON 4 MG/2 ML VIAL IVPUSH ONE ×2 (09:03→10:52)
[2022-11-22] MEDS ORDERED: ACETAMINOPHEN INJECTION 100 ML IVPB ONE (09:16)
[2022-11-22] MEDS ORDERED: ONDANSETRON 4 MG/2 ML VIAL ONE ×2 (09:16→10:54)
[2022-11-22 09:46] LABS: EPI CELLS 20 /uL (0-25.1); HYALINE CASTS 1 /uL (0-3.1); URINE APPEARANCE CLEAR; URINE BACTERIA 550 /uL (0-1359); URINE BILIRUBIN NEGATIVE (NEGATIVE); URINE COLOR YELLOW; URINE GLUCOSE (UA) NEGATIVE (NEGATIVE); URINE KETONE 2+ (NEGATIVE); URINE LEUK ESTERASE NEGATIVE (NEGATIVE); URINE NITRITE NEGATIVE (NEGATIVE); URINE PROTEIN 1+ (NEGATIVE); URINE RBC 50 /uL (0-23.9); URINE WBC 19 /uL (0-25.8)
[2022-11-22 09:50] LABS: BASO % 0.2 % (0-2.0); HEMATOCRIT 46.5 % (32.4-45.2); HEMOGLOBIN 15.3 GM/dL (10.7-15.3); INR 1.05 (0.83-1.09); LYMPH % 9.5 % (8-40); MCH 29.2 pg (25.7-33.7); MCHC 32.9 g/dl (32.0-36.0); MEAN CELL VOLUME 88.5 fl (80-96); MEAN PLT VOLUME 9.1 fl (7.5-11.1); MONO % 4.7 % (3.8-10.2); NEUT % 85.6 % (42.8-82.8); PLATELET COUNT 272 10^3/uL (134-434); PROTHROMBIN TIME (PATIENT) 12.2 SEC (9.7-13.0); RBC 5.26 M/mm3 (3.60-5.2); RDW 13.8 % (11.6-15.6); WHITE BLOOD COUNT 11.4 K/mm3 (4.0-10.0)
[2022-11-22 09:52] LABS: ACTIVATED PTT 30.1 SECONDS (25.2-36.5)
[2022-11-22 09:57] LABS: HCG,QUALITATIVE URINE Negative
[2022-11-22 10:02] LABS: POTASSIUM 3.9 mmol/L (3.5-5.1)
[2022-11-22 10:04] LABS: ALBUMIN 4.4 g/dl (3.4-5.0); BLOOD UREA NITROGEN 9.6 mg/dL (7-18); CALCIUM 9.8 mg/dL (8.5-10.1)
[2022-11-22 10:07] LABS: CREATININE 0.8 mg/dL (0.55-1.3)
[2022-11-22 10:09] LABS: BILIRUBIN,TOTAL 1.3 mg/dL (0.2-1); TOT PROT 7.8 g/dl (6.4-8.2)
[2022-11-22] MEDS ORDERED: KETOROLAC TROMETHAMINE 15 MG/ML VIAL IVPUSH ONE (10:52)
[2022-11-22] MEDS ORDERED: KETOROLAC TROMETHAMINE 15 MG/ML VIAL ONE (10:54)
[2022-11-22] MEDS ORDERED: METOCLOPRAMIDE HCL INJECTION 10 MG/2 ML VIAL IVPUSH ONE (11:19)
[2022-11-22] MEDS ORDERED: METOCLOPRAMIDE HCL INJECTION 10 MG/2 ML VIAL ONE (11:21)
[2022-11-22 11:50] LABS: BILIRUBIN,DIRECT 0.3 mg/dL (0.0-0.2)
[2022-11-22] MEDS ORDERED: PROCHLORPERAZINE INJECTION 10 MG/2 ML VIAL IVPB ONE (12:35)
[2022-11-22] MEDS ORDERED: PROCHLORPERAZINE INJECTION 10 MG/2 ML VIAL ONE (12:36)
[2022-11-22] MEDS ORDERED: ONDANSETRON 4 MG/2 ML VIAL IVPB PRN (17:53)
[2022-11-22] MEDS ORDERED: ACETAMINOPHEN 1000 MG/100 ML BAG IVPB PRN (17:53)
[2022-11-23 01:38] VITALS: RESP 18
[2022-11-23 08:48] LABS: BASO % 0.5 % (0-2.0); EOS % 0.7 % (0-4.5); HEMOGLOBIN 13.8 GM/dL (10.7-15.3); LYMPH % 29.6 % (8-40); MCH 29.1 pg (25.7-33.7); MCHC 33.8 g/dl (32.0-36.0); MEAN CELL VOLUME 86.3 fl (80-96); MEAN PLT VOLUME 8.7 fl (7.5-11.1); MONO % 8.2 % (3.8-10.2); PLATELET COUNT 245 10^3/uL (134-434); RBC 4.75 M/mm3 (3.60-5.2); WHITE BLOOD COUNT 7.9 K/mm3 (4.0-10.0)
[2022-11-23 09:15] LABS: POTASSIUM 3.8 mmol/L (3.5-5.1)
[2022-11-23 09:19] LABS: ALBUMIN 3.8 g/dl (3.4-5.0); AMYLASE 136 U/L (25-115); BLOOD UREA NITROGEN 9.1 mg/dL (7-18); LIPASE 394 U/L (73-393)
[2022-11-23 09:23] LABS: CREATININE 0.6 mg/dL (0.55-1.3)
[2022-11-23 09:24] LABS: BILIRUBIN,TOTAL 1.9 mg/dL (0.2-1)
[2022-11-23 09:25] LABS: TOT PROT 6.6 g/dl (6.4-8.2)
[2022-11-23 14:29] VITALS: BP 150/73; PULSE 79; TEMP 99.1
== END 2022-11-23 18:31 | disposition home or self-care (01) ==
LOC: JER 08:25 → JERBED 12:34 → J6S 19:59
PROVIDERS: ADMIT Family Medicine; ATTEND Family Medicine
PROC: 3E033NZ Introduction of Analgesics, Hypnotics, Sedatives into Peripheral Vein, Percutaneous Approach (ICD-10-PCS; principal; 2022-11-22)
PROC: 3E033GC Introduction of Other Therapeutic Substance into Peripheral Vein, Percutaneous Approach (ICD-10-PCS; 2022-11-22)
PROC: 3E0337Z Introduction of Electrolytic and Water Balance Substance into Peripheral Vein, Percutaneous Approach (ICD-10-PCS; 2022-11-22)
DX: N20.0 Calculus of kidney (principal); J45.909 Unspecified asthma, uncomplicated; R11.10 Vomiting, unspecified; N83.201 Unspecified ovarian cyst, right side; Z87.891 Personal history of nicotine dependence; F41.8 Other specified anxiety disorders; E66.01 Morbid (severe) obesity due to excess calories; Z68.41 Body mass index [BMI] 40.0-44.9, adult
CPT/HCPCS: 36415; 74176-TC; 76775-TC; 76830-TC; 80053; 81003; 82150; 82248; 83690; 84703; 85025; 85610; 85730; 86140; 86850; 86900; 86901; 87086; 93005; 93010; 96374; 96375; 96376; 99285-25; G0378

== ENCOUNTER 2023-07-23 15:26 | Emergency (ER) | payer OTHER ==
[2023-07-23 15:32] VITALS: BP 173/100; PULSE 64; RESP 18; TEMP 98; BMI 39.8
[2023-07-23] MEDS ORDERED: AMOX TR/POT CLAV 875MG/125MG TABLETS (FP) ONE (16:45)
[2023-07-23] MEDS ORDERED: KETOROLAC TROMETHAMINE 30 MG/1 ML VIAL ONE (16:46)
[2023-07-23] MEDS: AMOX TR/POT CLAV 875MG/125MG TABLETS (FP) PO ONE (16:51)
[2023-07-23] MEDS: KETOROLAC TROMETHAMINE 30 MG/1 ML VIAL IM ONE (16:51)
== END 2023-07-23 17:34 | disposition home or self-care (01) ==
LOC: JERFT 15:26
PROC: 3E0233Z Introduction of Anti-inflammatory into Muscle, Percutaneous Approach (ICD-10-PCS; principal; 2023-07-23)
DX: K08.89 Other specified disorders of teeth and supporting structures (principal); K02.9 Dental caries, unspecified
CPT/HCPCS: 99284-25

== ENCOUNTER → 2025-01-11 | Day surgery (SDC) | payer OTHER | END | disposition home or self-care (01) | LOC: FMAMMOTONE 09:08 | PROVIDERS: ATTEND Family Medicine | PROC: 0H9U3ZX Drainage of Left Breast, Percutaneous Approach, Diagnostic (ICD-10-PCS; principal; 2025-01-11) | DX: N63.23 Unspecified lump in the left breast, lower outer quadrant (principal) | CPT/HCPCS: 19081; 77065-TC; G0279-TC ==

== ENCOUNTER 2025-03-18 16:57 | Emergency (ER) | payer OTHER ==
[2025-03-18 17:05] VITALS: BP 114/74; PULSE 88; RESP 18; TEMP 98; BMI 43.4
[2025-03-18] MEDS ORDERED: ACETAMINOPHEN 500 MG TABLET (FP) ONE (18:36)
[2025-03-18] MEDS ORDERED: KETOROLAC TROMETHAMINE 30 MG/1 ML VIAL ONE (18:36)
[2025-03-18] MEDS: KETOROLAC TROMETHAMINE 30 MG/1 ML VIAL IM ONE (18:39)
[2025-03-18] MEDS: ACETAMINOPHEN 500 MG TABLET (FP) PO ONE (18:39)
[2025-03-18 18:57] LABS: URINE APPEARANCE CLEAR; URINE BILIRUBIN NEGATIVE (NEGATIVE); URINE COLOR YELLOW; URINE GLUCOSE (UA) NEGATIVE (NEGATIVE); URINE KETONE NEGATIVE (NEGATIVE); URINE LEUK ESTERASE NEGATIVE (NEGATIVE); URINE NITRITE NEGATIVE (NEGATIVE); URINE PROTEIN NEGATIVE (NEGATIVE); URINE UROBILINOGEN 0.2 mg/dL (0.2-1.0)
[2025-03-18 18:59] LABS: HCG,QUALITATIVE URINE Negative
[2025-03-18] MEDS ORDERED: predniSONE 20 MG TABLET (UD) ONE (19:44)
[2025-03-18] MEDS: predniSONE 20 MG TABLET (UD) PO ONE (19:47)
== END 2025-03-18 21:24 | disposition home or self-care (01) ==
LOC: JERFT 16:57 → JER 16:57 → JERFT 21:24
PROC: 3E0233Z Introduction of Anti-inflammatory into Muscle, Percutaneous Approach (ICD-10-PCS; principal; 2025-03-18)
DX: S33.2XXA Dislocation of sacroiliac and sacrococcygeal joint, initial encounter (principal); X50.1XXA Overexertion from prolonged static or awkward postures, initial encounter
CPT/HCPCS: 72220-TC-FY; 81003; 84703; 87086; 99284-25